=== PATIENT | male | born 1935 | race Caucasian/White ===

== ENCOUNTER 2017-08-22 13:09 | Emergency (ER) | payer OTHER ==
[2017-08-22 13:27] VITALS: TEMP 97.9
--- NOTE | 2017-08-22 13:59 | EDPHY ---
H & P Time Seen by Provider: 08/22/17 13:16 HPI/ROS: CHIEF COMPLAINT: Right-sided weakness, episode of unresponsiveness HISTORY OF PRESENT ILLNESS: 81-year-old male with advanced dementia presents after an episode of unresponsiveness. He was sitting in a chair and slumped forward in the chair. His family was unable to arouse him. He had a right facial droop and was drooling. In addition, he did not appear to be moving his right side. The symptoms lasted approximately 30 min and on EMS arrival, he was back to his normal baseline mental status and no weakness detected. He was not pale nor diaphoretic. No prior history of TIA/CVA. No recent head trauma. REVIEW OF SYSTEMS: Constitutional: No fever, no chills Eyes: No visual changes ENT: No sore throat Respiratory: No cough, no shortness of breath Cardiac: No chest pain Gastrointestinal: No nausea, no vomiting, no abdominal pain Genitourinary: No hematuria, no dysuria Musculoskeletal: No leg pain or swelling Skin: No rash Neurological: No headache Psychiatric: No depression Past Medical/Surgical History: Advanced dementia Hypertension Social History: , lives in own home Smoking Status: Never smoked Physical Exam: General Appearance: Alert, pleasant, answers questions appropriately, speech is clear Eyes: Pupils equal and round, no conjunctival pallor ENT, Mouth: Mucous membranes moist Neck: Normal inspection Respiratory: Lungs are clear to auscultation Cardiovascular: Regular rate and rhythm Gastrointestinal: Abdomen is soft and nontender Neurological: Alert, oriented to person, cranial nerves II through XII intact, motor 5/5, sensory intact to light touch Skin: Warm and dry Extremities: Inspection Psychiatric: Mood and affect normal Constitutional: Initial Vital Signs Temperature (C) 36.6 C 08/22/17 13:24 Heart Rate 97 08/22/17 13:24 Respiratory Rate 18 08/22/17 13:24 Blood Pressure 113/74 08/22/17 13:24 O2 Sat (%) 98 08/22/17 13:24 O2 Delivery Mode Room Air Allergies/Adverse Reactions: No Known Allergies Allergy (Unverified 08/22/17 13:27) Home Medications: Medication Instructions Recorded Ativan 08/22/17 Atorvastatin Calcium 08/22/17 Flomax 08/22/17 Losartan Potassium 08/22/17 amLODIPine BESYLATE 03/01/18 Medical Decision Making - Diagnostics EKG Interpretation: EKG interpreted by me reveals normal sinus rhythm, rate 91, nonspecific inferior T-wave changes. Imaging Results: Head CT 08/22/17 13:36 Impression: Elderly head CT. Nothing acute identified. Results called to Dr. Arriola at 2:32 PM. Final results are concordant with the initial interpretation. ED Course/Re-evaluation: This patient presents after an episode of unresponsiveness. Most likely secondary to TIA, though the clinical history is somewhat unclear through the patient's . He may have had a syncopal episode instead. Emergency department evaluation, including CT scan of the brain is unremarkable. I advised admission for further evaluation of TIA. However the patient and his refused. The patient's is a competent decision maker and clearly understands the risks and benefits of this decision. He will take an aspirin daily and follow up with his primary care physician. Differential Diagnosis: Altered mental status including but not limited to hypoglycemia, infectious process, electrolyte abnormality, head injury and intoxicants. - Data Points Laboratory Results: Laboratory Results 08/22/17 15:09 08/22/17 15:09 Medications Given: Discontinued Medications Aspirin Buffered (Aspirin Ec) 325 mg PO EDNOW ONE Stop: 08/22/17 15:32 Last Admin: 08/22/17 15:32 Dose: 325 mg Departure - Departure Disposition: Home, Routine, Self-Care Clinical Impression: Transient cerebral ischemia Qualifiers: Transient cerebral ischemia type: carotid artery syndrome (hemispheric) Qualified Code(s): G45.1 - Carotid artery syndrome (hemispheric) Condition: Good Instructions: Transient Ischemic Attack (ED) Additional Instructions: Take an aspirin daily. Referrals: Becky Moore MD [Medical Doctor] - As per Instructions
--- NOTE | 2017-08-22 14:40 | CPEKG ---
Heart Rate: 91 RR Interval: 659 P-R Interval: 160 QRSD Interval: 88 QT Interval: 368 QTC Interval: 453 P [employer]: 34 QRS [employer]: 88 T Wave [employer]: -82 EKG Severity - OTHERWISE NORMAL ECG - EKG Impression: SINUS RHYTHM EKG Impression: VENTRICULAR PREMATURE COMPLEX EKG Impression: BORDERLINE RIGHT AXIS DEVIATION Electronically Signed By: Raquel Arriola 22-Aug-2017 15:29:27
[2017-08-22 15:13] LABS: PLATELET COUNT 350 10^3/uL (150-400)
[2017-08-22] MEDS ORDERED: ASPIRIN EC 325 MG TAB PO ONE ×2 (15:29→15:31)
[2017-08-22 15:51] VITALS: RESP 16; O2SAT 95
[2017-08-22 15:54] VITALS: BP 127/77; PULSE 82
== END 2017-08-22 15:48 | disposition home or self-care (01) ==
DX: G45.1 Carotid artery syndrome (hemispheric) (principal); I10 Essential (primary) hypertension
CPT/HCPCS: 82947-QW

== ENCOUNTER 2018-10-21 09:09 | Emergency (ER) | payer OTHER ==
[2018-10-21] MEDS ORDERED: NS 1,000 ML IV ONE (09:25)
--- NOTE | 2018-10-21 09:31 | EDPHY ---
H & P Time Seen by Provider: 10/21/18 09:12 HPI/ROS: Chief complaint. Malaise HPI. 83-year-old male here by EMS with general malaise and shakiness. Symptoms began at 7:00 a.m. This morning per his . He developed feeling cold and chills and shaking. He was complaining of being thirsty. The felt the patient was short of breath. He did have a cough last night. He has not had a fever in the last few days. He has dementia with indwelling Caraballo catheter. No vomiting or diarrhea. No rash per his . ROS 10 systems were reviewed and negative with the exception of the elements mentioned in the history of present illness Past Medical/Surgical History: Dementia, hypertension, dyslipidemia, BPH, indwelling Caraballo catheter Social History: , nonsmoker, no alcohol Smoking Status: Never smoked Physical Exam: General Appearance: Alert well-developed male moderate distress vital signs show temp 37.7 degrees with heart rate 126. Blood pressure stable. Initial oxygen saturation 89% on room air Eyes: Pupils equal and round no pallor or injection. ENT, Mouth: Mucous membranes are moist. Respiratory: No retractions. Rales left lower lobe Cardiovascular: Regular rate and rhythm. Gastrointestinal: Abdomen is soft and nontender, no masses, bowel sounds normal. Neurological: Awake and alert, sensory and motor exams grossly normal. Skin: Warm and dry, no rashes. Musculoskeletal: Neck is supple nontender. Extremities symmetrical, full range of motion. Psychiatric: Patient is oriented X 1, there is no agitation. Constitutional: Initial Vital Signs Temperature (C) 37.7 C 10/21/18 09:18 Heart Rate 126 H 10/21/18 09:18 Respiratory Rate 18 10/21/18 09:18 Blood Pressure 173/97 H 10/21/18 09:18 O2 Sat (%) 89 L 10/21/18 09:18 O2 Delivery Mode Nasal Cannula O2 (L/minute) 2 Allergies/Adverse Reactions: No Known Allergies Allergy (Verified 10/21/18 09:17) Home Medications: Medication Instructions Recorded Ativan 08/22/17 Atorvastatin Calcium 08/22/17 Flomax 08/22/17 Losartan Potassium 08/22/17 amLODIPine BESYLATE 08/22/17 Medical Decision Making - Diagnostics EKG Interpretation: EKG interpreted by me shows sinus tachycardia normal interval. Right axis deviation. QRS is otherwise normal. No significant ST elevation. Some lateral ST depression. No arrhythmia. Rate is 126 not significantly changed from previous EKG August 2017 Imaging Results: Imaging Impressions Chest X-Ray 10/21/18 09:25 Impression: Left basilar atelectasis versus pneumonia. Chest x-ray interpreted by me shows probable left lower lobe infiltrate Procedures: IV normal saline with initial target of 1 L. Oxygen therapy which increases his oxygen saturation to 96% on 2 L Sepsis workup IV Rocephin ED Course/Re-evaluation: 10:00 a.m. heart rate is 119 Re-evaluation at 10:45 a.m. A.m.. Heart rate 109 blood pressure 162/89 Patient, his , and I discussed imaging and lab results. We discussed treatment plan including recommendation for admission. They expressed understanding and agreement I consulted discussed case with hospitalist, who agrees to the admission Differential Diagnosis: Patient appears to have urinary tract infection but has a chronic indwelling Caraballo catheter. It also appears that he has left lower lobe pneumonia. I have considered sepsis, pneumonia, urinary tract infection - Data Points Laboratory Results: Laboratory Results 10/21/18 09:20 10/21/18 09:20 10/21/18 10/21/18 10/21/18 10:30 10:20 09:30 WBC RBC Hgb Hct MCV MCH MCHC RDW Plt Count MPV Neut % (Auto) Lymph % (Auto) [place] % (Auto) Eos % (Auto) Baso % (Auto) Nucleat RBC Rel Count Absolute Neuts (auto) Absolute Lymphs (auto) Absolute Monos (auto) Absolute Eos (auto) Absolute Basos (auto) Absolute Nucleated RBC Immature Gran % Immature Gran # PT INR APTT VBG Lactic Acid 1.7 mmol/L mmol/L (0.7-2.1) Sodium Potassium Chloride Carbon Dioxide Anion Gap BUN Creatinine Estimated GFR Glucose Calcium Total Bilirubin POC Troponin I 0.01 ng/mL ng/mL (0.00-0.08) NT-Pro-B Natriuret Pep Urine Color YELLOW Urine Appearance HAZY Urine pH 6.0 (5.0-7.5) Ur Specific [place] 1.010 (1.002-1.030) Urine Protein NEGATIVE (NEGATIVE) Urine Ketones NEGATIVE (NEGATIVE) Urine Blood 2+ H (NEGATIVE) Urine Nitrate POSITIVE H (NEGATIVE) Urine Bilirubin NEGATIVE (NEGATIVE) Urine Urobilinogen NEGATIVE EU EU (0.2-1.0) Ur Leukocyte Esterase 3+ H (NEGATIVE) Urine RBC 25-50 /hpf H /hpf (0-3) Urine WBC 50-182 /hpf H /hpf (0-3) Ur Epithelial Cells TRACE /lpf /lpf (NONE-1+) Urine Bacteria 2+ /hpf H /hpf (NONE SEEN) Granular Casts 1-5 /lpf /lpf (0-1) Urine Mucus TRACE /lpf /lpf (NONE-1+) Urine Glucose NEGATIVE (NEGATIVE) 10/21/18 10/21/18 10/21/18 09:20 09:20 09:20 WBC 8.89 10^3/uL 10^3/uL (3.80-9.50) RBC 5.37 10^6/uL 10^6/uL (4.40-6.38) Hgb 16.8 g/dL g/dL (13.7-17.5) Hct 50.9 % % (40.0-51.0) MCV 94.8 fL fL (81.5-99.8) MCH 31.3 pg pg (27.9-34.1) MCHC 33.0 g/dL g/dL (32.4-36.7) RDW 13.7 % % (11.5-15.2) Plt Count 226 10^3/uL 10^3/uL (150-400) MPV 10.6 fL fL (8.7-11.7) Neut % (Auto) 88.2 % H % (39.3-74.2) Lymph % (Auto) 8.2 % L % (15.0-45.0) Elmore % (Auto) 1.6 % L % (4.5-13.0) Eos % (Auto) 1.3 % % (0.6-7.6) Baso % (Auto) 0.4 % % (0.3-1.7) Nucleat RBC Rel Count 0.0 % % (0.0-0.2) Absolute Neuts (auto) 7.83 10^3/uL H 10^3/uL (1.70-6.50) Absolute Lymphs (auto) 0.73 10^3/uL L 10^3/uL (1.00-3.00) Absolute Monos (auto) 0.14 10^3/uL L 10^3/uL (0.30-0.80) Absolute Eos (auto) 0.12 10^3/uL 10^3/uL (0.03-0.40) Absolute Basos (auto) 0.04 10^3/uL 10^3/uL (0.02-0.10) Absolute Nucleated RBC 0.00 10^3/uL 10^3/uL (0-0.01) Immature Gran % 0.3 % % (0.0-1.1) Immature Gran # 0.03 10^3/uL 10^3/uL (0.00-0.10) PT 14.1 SEC SEC (12.0-15.0) INR 1.14 (0.83-1.16) APTT 28.6 SEC SEC (23.0-38.0) VBG Lactic Acid Sodium 138 mEq/L mEq/L (135-145) Potassium 4.0 mEq/L mEq/L (3.5-5.2) Chloride 104 mEq/L mEq/L (97-110) Carbon Dioxide 19 mEq/l L mEq/l (22-31) Anion Gap 15 mEq/L H mEq/L (6-14) BUN 14 mg/dL mg/dL (7-23) Creatinine 1.4 mg/dL H mg/dL (0.7-1.3) Estimated GFR 49 Glucose 122 mg/dL H mg/dL (70-100) Calcium 9.0 mg/dL mg/dL (8.5-10.4) Total Bilirubin 2.0 mg/dL H mg/dL (0.1-1.4) POC Troponin I NT-Pro-B Natriuret Pep 173 pg/mL pg/mL (0-450) Urine Color Urine Appearance Urine pH Ur Specific Hamilton Urine Protein Urine Ketones Urine Blood Urine Nitrate Urine Bilirubin Urine Urobilinogen Ur Leukocyte Esterase Urine RBC Urine WBC Ur Epithelial Cells Urine Bacteria Granular Casts Urine Mucus Urine Glucose Medications Given: Discontinued Medications Sodium Chloride (Ns) 1,000 mls @ 0 mls/hr IV EDNOW ONE; Wide Open PRN Reason: Protocol Stop: 10/21/18 09:26 Last Admin: 10/21/18 09:36 Dose: 1,000 mls Point of Care Test Results: Chemistry 10/21/18 09:30 POC Troponin I 0.01 ng/mL ng/mL (0.00-0.08) Departure - Departure Disposition: [facility] [place] [facility] [place] Clinical Impression: Pneumonia Qualifiers: Pneumonia type: due to unspecified organism Laterality: left Lung location: lower lobe of lung Qualified Code(s): J18.1 - Lobar pneumonia, unspecified organism Urinary tract infection Qualifiers: Urinary tract infection type: catheter-associated UTI Indwelling urinary catheter type: indwelling urethral catheter Encounter type: initial encounter Qualified Code(s): T83.511A - Infection and inflammatory reaction due to indwelling urethral catheter, initial encounter; N39.0 - Urinary tract infection , site not specified; N39.0 - Urinary tract infection, site not specified Condition: Fair Referrals: YOEL LEON [Primary Care Provider] - As per Instructions
[2018-10-21 09:41] LABS: PLATELET COUNT 226 10^3/uL (150-400)
[2018-10-21 09:49] LABS: INR 1.14 (0.83-1.16); PROTIME(PATIENT) 14.1 SEC (12.0-15.0)
[2018-10-21 12:14] VITALS: BP 158/89
--- NOTE | 2018-10-21 13:48 | CPEKG ---
Test Reason : OPEN Blood Pressure : / mmHG Vent. Rate : 126 BPM Atrial Rate : 126 BPM P-R Int : 151 ms QRS Dur : 086 ms QT Int : 305 ms P-R-T Axes : 046 096 -55 degrees QTc Int : 442 ms Sinus tachycardia Probable left atrial enlargement Right axis deviation Repol abnrm suggests ischemia, diffuse leads Confirmed by Nino Sue ([id number]) on 10/21/2018 1:48:35 PM Referred By: Nino Sue Confirmed By:Nino Sue
== END 2018-10-21 12:14 | disposition still patient (30) ==
LOC: EDUNIT# → UNDOADMIN 11:05
DX: J18.1 Lobar pneumonia, unspecified organism (principal); T83.511A Infection and inflammatory reaction due to indwelling urethral catheter, initial encounter; N39.0 Urinary tract infection, site not specified; F03.90 Unspecified dementia, unspecified severity, without behavioral disturbance, psychotic disturbance, mood disturbance, and anxiety; Y73.2 Prosthetic and other implants, materials and accessory gastroenterology and urology devices associated with adverse incidents
CPT/HCPCS: 84484-ER; 96365; J0696